=== PATIENT | male | born 1985 | race Native Hawaiian/Other Pacific Islander ===

== ENCOUNTER 2020-08-30 11:44 | Emergency (ER) | payer OTHER ==
[~2020-08-30] VITALS: Ht 185.4 cm; Wt 98.4 kg
[2020-08-30 11:45] VITALS: TEMP 98.5
[2020-08-30 12:08] LABS: PLATELET COUNT 249 K/uL (142-355)
[2020-08-30 12:16] LABS: POTASSIUM 4.1 mmol/L (3.6-5.2)
[2020-08-30 13:36] VITALS: BP 126/88
== END 2020-08-30 13:27 | disposition home or self-care (01) ==
LOC: ED 11:44
PROVIDERS: Hospitalist
DX: R10.31 Right lower quadrant pain (principal); R11.2 Nausea with vomiting, unspecified
CPT/HCPCS: 36415; 80053; 83690; 85027; 96365; 96375; 99284; J1170; J1885; J2405